=== PATIENT | male | born 2000 | race Caucasian/White ===

== ENCOUNTER 2020-12-02 12:24 | Emergency (ER) | payer BC ==
[~2020-12-02] VITALS: Ht 175.3 cm; Wt 81.7 kg
[~2020-12-02 12:24] MED LIST: METPHE5 PO
[2020-12-02] MEDS ORDERED: Norco 5-325 Ta1 EACH PO (16:21)
== END 2020-12-02 16:32 | disposition home or self-care (01) ==
LOC: ER 12:24
DX: S62.307A Unspecified fracture of fifth metacarpal bone, left hand, initial encounter for closed fracture (principal); S62.305A Unspecified fracture of fourth metacarpal bone, left hand, initial encounter for closed fracture; X58.XXXA Exposure to other specified factors, initial encounter
CPT/HCPCS: 25635; 73120; 73130; 99152; 99283-25; J7030